=== PATIENT | female | born 1990 | race African-American/Black ===

== ENCOUNTER 2016-08-24 10:10 | Emergency (ER) | payer MEDICAID ==
[~2016-08-24] VITALS: Ht 160 cm; Wt 45.4 kg
[2016-08-24 10:40] VITALS: BP 156/107
[2016-08-24 14:46] LABS: Basophils # (auto) 0 uL; Basophils % (auto) 0.4 % (0.0-2.0); Eosinophils # (auto) 0 uL; Eosinophils % (auto) 0.1 % (0.0-7.0); Hematocrit 46.6 % (36.0-46.0); Hemoglobin 15.6 g/dL (12.2-16.2); Lymphocytes # (auto) 1.5 uL; Lymphocytes % (auto) 19.3 % (10.0-50.0); Mean Corpuscular Hemoglobin 30.4 pg (28.0-32.0); Mean Corpuscular Hgb Conc. 33.4 g/dL (32.0-36.0); Mean Corpuscular Volume 91.1 fL (80.0-100.0); Mean Platelet Volume 8.8 fL (7.4-10.4); Monocytes # (auto) 0.5 uL; Neutrophils # (auto) 5.6 uL; Neutrophils % (auto) 73.2 % (37.0-80.0); Platelet Count (auto) 340 10^3/uL (140-450); Red Cell Distribution Width 13.5 % (11.6-16.0); White Blood Cell 7.7 10^3/uL (4.4-10.8)
[2016-08-24 15:31] LABS: Albumin 4.2 g/dL (3.4-5.0); BUN/Creatinine Ratio 11.4; Calcium 9.7 mg/dL (8.5-10.1); Magnesium 2.3 mg/dL (1.6-2.6)
[2016-08-24 15:33] LABS: Bilirubin, Total 0.9 mg/dL (0.2-1.0); Total Protein 8.2 g/dL (6.4-8.2)
[2016-08-24 15:59] LABS: Potassium 2.7 mmol/L (3.5-5.1)
== END 2016-08-24 12:00 | disposition left against medical advice (07) ==
LOC: ER 10:10
DX: R10.84 Generalized abdominal pain (principal); R11.2 Nausea with vomiting, unspecified; M54.9 Dorsalgia, unspecified; Z53.21 Procedure and treatment not carried out due to patient leaving prior to being seen by health care provider
CPT/HCPCS: 36415; 80053; 83735; 84702; 85025; J7030

== ENCOUNTER 2016-10-02 05:27 | Inpatient (IN) | payer MEDICAID ==
[~2016-10-02] VITALS: Ht 162.6 cm; Wt 55.6 kg
[2016-10-02 06:14] LABS: Basophils # (auto) 0 uL; Basophils % (auto) 0.3 % (0.0-2.0); Eosinophils # (auto) 0 uL; Hematocrit 52.2 % (36.0-46.0); Hemoglobin 17.3 g/dL (12.2-16.2); Lymphocytes # (auto) 0.9 uL; Lymphocytes % (auto) 5.8 % (10.0-50.0); Mean Corpuscular Hgb Conc. 33.2 g/dL (32.0-36.0); Mean Corpuscular Volume 90.3 fL (80.0-100.0); Monocytes # (auto) 1.2 uL; Monocytes % (auto) 7.9 % (0.0-12.0); Neutrophils # (auto) 13.6 uL; Platelet Count (auto) 315 10^3/uL (140-450); Red Cell Distribution Width 13.3 % (11.6-16.0); White Blood Cell 15.8 10^3/uL (4.4-10.8)
[2016-10-02 06:22] LABS: INR 1.05 (0.9-1.15); Prothrombin Time 11.3 sec (9.37-12.3)
[2016-10-02 06:25] LABS: Albumin 5.2 g/dL (3.4-5.0); BUN/Creatinine Ratio 17.5; Calcium 10.6 mg/dL (8.5-10.1)
[2016-10-02 06:31] LABS: Bilirubin, Total 0.9 mg/dL (0.2-1.0); Potassium 2.6 mmol/L (3.5-5.1); Total Protein 9.8 g/dL (6.4-8.2)
[2016-10-02] MEDS ORDERED: SODIUM CHLORIDE 0.9% 1,000 ML IVB ONE (06:35)
[2016-10-02] MEDS ORDERED: PANTOPRAZOLE SODIUM 40 MG/10 ML VIAL IV STA (06:35)
[2016-10-02] MEDS ORDERED: HYDROmorphone HCL 2 MG/ML VL IV ONE (06:45)
[2016-10-02] MEDS ORDERED: PROCHLORPERAZINE EDISYLATE 5 MG/ML 2ML VIAL IV ONE (06:45)
[2016-10-02] MEDS ORDERED: POTASSIUM CHL 20MEQ/100ML 100 ML IV ONE (07:00)
[2016-10-02] MEDS ORDERED: MORPHINE SULF INJ 2 MG/ML SYRINGE 1ML IV PRN (08:30)
[2016-10-02] MEDS ORDERED: PANTOPRAZOLE SODIUM 40 MG/10 ML VIAL IV ONE (08:30)
[2016-10-02] MEDS ORDERED: LACTULOSE 20Gm/30ML SOLN PO PRN (08:30)
[2016-10-02] MEDS ORDERED: POTASSIUM CHL 20MEQ/100ML 100 ML IV SCH (08:30)
[2016-10-02] MEDS ORDERED: PROCHLORPERAZINE EDISYLATE 5 MG/ML 2ML VIAL IV PRN (08:30)
[2016-10-02] MEDS ORDERED: LORazepam 0.5 MG TAB PO PRN (08:30)
[2016-10-02] MEDS ORDERED: POTASSIUM CHL 20 Meq TABLET PO ONE (08:30)
[2016-10-02] MEDS ORDERED: cefTRIAXone 1GM/50ML D5W 50 ML IV ONE (08:30)
[2016-10-02] MEDS ORDERED: NITROGLYCERIN 0.4 MG SL TAB SL PRN (08:30)
[2016-10-02] MEDS ORDERED: ACETAMINOPHEN 500 MG TAB PO PRN (08:30)
[2016-10-02] MEDS ORDERED: TEMAZEPAM 15 MG CAP PO PRN (08:30)
[2016-10-02] MEDS: SOD CHL 0.9%/ KCL 40MEQ 1,000 ML IV SCH ×2 (09:58→18:11)
[2016-10-02] MEDS: MORPHINE SULF INJ 2 MG/ML SYRINGE 1ML IV PRN ×3 (09:58→20:13)
[2016-10-02] MEDS ORDERED: PANTOPRAZOLE SODIUM 40 MG/10 ML VIAL IV SCH (10:00)
[2016-10-02] MEDS: PANTOPRAZOLE SODIUM 40 MG/10 ML VIAL IV SCH ×2 (10:00→22:39)
[2016-10-02] MEDS: metroNIDAZOLE 500MG/100ML 100 ML IV SCH ×3 (10:34→22:39)
[2016-10-02 11:38] VITALS: BP 130/98
[2016-10-02] MEDS: POTASSIUM CHL 20MEQ/100ML 100 ML IV SCH ×5 (12:37→23:49)
[2016-10-02 12:53] LABS: Hematocrit 44.6 % (36.0-46.0); Hemoglobin 14.7 g/dL (12.2-16.2)
[2016-10-02 13:00] VITALS: BP 130/98
[2016-10-02 16:33] VITALS: BP 126/65
[2016-10-02] MEDS: HYDROcodone-ACET 5/325MG TAB PO PRN (18:25)
[2016-10-02 18:41] LABS: Hematocrit 44.2 % (36.0-46.0); Hemoglobin 14.5 g/dL (12.2-16.2)
[2016-10-02 21:37] VITALS: BP 126/70
[2016-10-03] MEDS ORDERED: HYDROmorphone HCL 2 MG/ML VL IV ONE (00:15)
[2016-10-03] MEDS: ONDANSETRON HCL 4 MG/2 ML VIAL IV PRN ×4 (00:29→21:36)
[2016-10-03] MEDS: SOD CHL 0.9%/ KCL 40MEQ 1,000 ML IV SCH ×3 (01:10→17:32)
[2016-10-03 01:31] LABS: Hematocrit 40.8 % (36.0-46.0); Hemoglobin 13.7 g/dL (12.2-16.2)
[2016-10-03] MEDS: metroNIDAZOLE 500MG/100ML 100 ML IV SCH ×4 (04:40→21:36)
[2016-10-03] MEDS: MORPHINE SULF INJ 2 MG/ML SYRINGE 1ML IV PRN ×2 (04:41→09:05)
[2016-10-03 04:44] VITALS: BP 134/80
[2016-10-03 06:36] LABS: Basophils # (auto) 0 uL; Basophils % (auto) 0.1 % (0.0-2.0); Eosinophils # (auto) 0 uL; Eosinophils % (auto) 0.2 % (0.0-7.0); Hemoglobin 13.3 g/dL (12.2-16.2); Lymphocytes # (auto) 0.9 uL; Lymphocytes % (auto) 8.3 % (10.0-50.0); Mean Corpuscular Hemoglobin 30.6 pg (28.0-32.0); Mean Corpuscular Hgb Conc. 33.3 g/dL (32.0-36.0); Mean Corpuscular Volume 92.1 fL (80.0-100.0); Mean Platelet Volume 9.4 fL (7.4-10.4); Monocytes # (auto) 1.3 uL; Monocytes % (auto) 11.4 % (0.0-12.0); Neutrophils # (auto) 8.8 uL; Platelet Count (auto) 263 10^3/uL (140-450); Red Cell Distribution Width 13.7 % (11.6-16.0)
[2016-10-03 07:17] LABS: Albumin 3.6 g/dL (3.4-5.0); Bilirubin, Total 0.8 mg/dL (0.2-1.0); Calcium 9.5 mg/dL (8.5-10.1); Potassium 3.9 mmol/L (3.5-5.1)
[2016-10-03] MEDS: HYDROcodone-ACET 5/325MG TAB PO PRN (07:53)
[2016-10-03 08:06] LABS: Thyroid Peroxidase (TPO) Ab 11 IU/mL (0-34)
[2016-10-03 08:20] LABS: Urine Bilirubin Negative (Negative); Urine Blood Negative /uL (Negative); Urine Color Yellow (Yellow); Urine Glucose Normal (Normal); Urine Ketone 2+ (Negative); Urine Nitrite Negative (Negative); Urine RBC 1 /hpf (0 - 4); Urine Squamous Epithelial Cell MOD /hpf (<5); Urine Urobilinogen Normal (Negative)
[2016-10-03 09:00] VITALS: BP 158/101
[2016-10-03] MEDS: PANTOPRAZOLE SODIUM 40 MG/10 ML VIAL IV SCH (09:04)
[2016-10-03] MEDS: cefTRIAXone 1GM/50ML D5W 50 ML IV SCH (09:05)
[2016-10-03 13:00] VITALS: BP 139/94
[2016-10-03] MEDS: MORPHINE SULFATE 4 MG/ML SYRG IV PRN ×3 (14:30→23:09)
[2016-10-03 16:11] LABS: Sjogren's Anti-SS-A Antibody <0.2 AI (0.0-0.9)
[2016-10-03 16:35] VITALS: BP 134/82
[2016-10-03] MEDS: HYDROcodone-ACET 10/325MG TAB PO PRN ×2 (17:33→21:36)
[2016-10-03 21:36] VITALS: BP 131/81
[2016-10-03] MEDS: FAMOTIDINE 20 MG TAB PO SCH (21:36)
[2016-10-04] MEDS: SOD CHL 0.9%/ KCL 40MEQ 1,000 ML IV SCH ×2 (02:32→10:40)
[2016-10-04] MEDS: ONDANSETRON HCL 4 MG/2 ML VIAL IV PRN ×3 (02:33→12:22)
[2016-10-04] MEDS: HYDROcodone-ACET 10/325MG TAB PO PRN ×2 (02:33→10:38)
[2016-10-04] MEDS: metroNIDAZOLE 500MG/100ML 100 ML IV SCH ×2 (04:31→10:40)
[2016-10-04] MEDS: MORPHINE SULFATE 4 MG/ML SYRG IV PRN ×3 (04:31→12:48)
[2016-10-04 05:04] VITALS: BP 138/94
[2016-10-04 05:45] LABS: BUN/Creatinine Ratio 13.4; Calcium 8.7 mg/dL (8.5-10.1); Potassium 3.3 mmol/L (3.5-5.1)
[2016-10-04 07:30] VITALS: BP 135/79
[2016-10-04] MEDS: cefTRIAXone 1GM/50ML D5W 50 ML IV SCH (08:00)
[2016-10-04] MEDS: FAMOTIDINE 20 MG TAB PO SCH (08:41)
[2016-10-04 09:00] VITALS: BP 135/79
[2016-10-04 13:00] VITALS: BP 130/88
[2016-10-05 12:07] LABS: Anti-sarcolemma Antibody Negative (Neg:<1:20)
[2016-10-05 13:10] LABS: Anti-intermyofibrillar Ab Negative (Neg:<1:20); Antiproteinase 3 (PR-3) Ab <3.5 U/mL (0.0-3.5)
== END 2016-10-04 15:00 | disposition home or self-care (01) | DRG 251 ==
LOC: ER 05:27 → TELE 05:28 → TELE-WESTW 11:03
PROVIDERS: ADMIT Internal Medicine; ATTEND Internal Medicine
DX: R10.31 Right lower quadrant pain (principal); N17.9 Acute kidney failure, unspecified; E87.8 Other disorders of electrolyte and fluid balance, not elsewhere classified; E87.1 Hypo-osmolality and hyponatremia; K92.2 Gastrointestinal hemorrhage, unspecified; E86.0 Dehydration; E87.6 Hypokalemia; F12.90 Cannabis use, unspecified, uncomplicated; G43.A1 Cyclical vomiting, in migraine, intractable; K59.00 Constipation, unspecified; G89.29 Other chronic pain; D72.829 Elevated white blood cell count, unspecified; B95.7 Other staphylococcus as the cause of diseases classified elsewhere
CPT/HCPCS: 36415; 74176; 76775; 80048; 80053; 80061; 80307; 81001; 81025; 82150; 83520; 83690; 84702; 85014; 85018; 85025; 85045; 85610; 85652; 85730; 86141; 86225; 86235; 86256; 86850; 86900; 86901; 87040; 87077; 87086; 87186; 94761; 96374; 96375; C9113; J0696; J2405; J3480; J3490

== ENCOUNTER 2016-11-02 04:31 | Emergency (ER) | payer MEDICAID ==
[~2016-11-02] VITALS: Ht 162.6 cm; Wt 54.4 kg
[2016-11-02 04:31] VITALS: BP 143/96
[2016-11-02] MEDS ORDERED: ceFAZolin 1GM/50ML D5W 50 ML IV ONE (07:36)
== END 2016-11-02 06:16 | disposition left against medical advice (07) ==
LOC: ER 04:31
DX: R10.30 Lower abdominal pain, unspecified (principal); R11.0 Nausea; Z53.21 Procedure and treatment not carried out due to patient leaving prior to being seen by health care provider
CPT/HCPCS: J0690

== ENCOUNTER 2016-11-03 02:58 | Emergency (ER) | payer MEDICAID ==
[~2016-11-03] VITALS: Ht 170.2 cm; Wt 52.2 kg
[2016-11-03 03:29] LABS: Basophils # (auto) 0 uL; Basophils % (auto) 0.4 % (0.0-2.0); Eosinophils # (auto) 0 uL; Hematocrit 46.5 % (36.0-46.0); Hemoglobin 15.6 g/dL (12.2-16.2); Lymphocytes # (auto) 1.6 uL; Lymphocytes % (auto) 18.4 % (10.0-50.0); Mean Corpuscular Hemoglobin 30.8 pg (28.0-32.0); Mean Corpuscular Hgb Conc. 33.6 g/dL (32.0-36.0); Mean Corpuscular Volume 91.7 fL (80.0-100.0); Mean Platelet Volume 9.1 fL (7.4-10.4); Monocytes # (auto) 0.9 uL; Monocytes % (auto) 9.8 % (0.0-12.0); Neutrophils # (auto) 6.4 uL; Neutrophils % (auto) 71.4 % (37.0-80.0); Platelet Count (auto) 327 10^3/uL (140-450); Red Cell Distribution Width 13.7 % (11.6-16.0); White Blood Cell 8.9 10^3/uL (4.4-10.8)
[2016-11-03 03:40] LABS: INR 1.05 (0.9-1.15); Partial Thromboplastin Time 25.1 sec (22.64-33.71); Prothrombin Time 11.5 sec (9.37-12.3)
[2016-11-03 03:52] LABS: Albumin 4.2 g/dL (3.4-5.0); Calcium 10.8 mg/dL (8.5-10.1)
[2016-11-03 03:54] LABS: BUN/Creatinine Ratio 6.7
[2016-11-03 03:56] LABS: Bilirubin, Total 0.8 mg/dL (0.2-1.0); Potassium 2.9 mmol/L (3.5-5.1); Total Protein 8.9 g/dL (6.4-8.2)
[2016-11-03] MEDS ORDERED: ONDANSETRON ODT 4 MG TAB PO ONE (04:15)
[2016-11-03] MEDS ORDERED: POTASSIUM CHL 20 Meq TABLET PO ONE (04:15)
[2016-11-03] MEDS ORDERED: SODIUM CHLORIDE 0.9% 1,000 ML IV ONE ×2 (07:14)
[2016-11-03] MEDS ORDERED: ONDANSETRON HCL 4 MG/2 ML VIAL IV ONE (07:15)
[2016-11-03] MEDS ORDERED: NALBUPHINE HCL 10 MG/1ml INJECTION IV ONE (07:15)
[2016-11-03 07:30] VITALS: BP 142/100
[2016-11-03] MEDS ORDERED: KETOROLAC TROMETH 30 MG/ML 1ML VIAL ONE (08:57)
[2016-11-03] MEDS ORDERED: KETOROLAC TROMETH 30 MG/ML 1ML VIAL IV ONE (09:15)
== END 2016-11-03 09:40 | disposition home or self-care (01) ==
LOC: ER 02:58 → EDBD 02:58 → ER 09:40
DX: K29.70 Gastritis, unspecified, without bleeding (principal)
CPT/HCPCS: 36415; 74176; 80053; 82150; 83690; 84702; 85025; 85610; 85730; 96361; 96374; 96375; 99285; J1885; J2300; J2405; J7030; Q0162

== ENCOUNTER 2017-01-05 11:15 | Emergency (ER) | payer MEDICAID ==
[~2017-01-05] VITALS: Ht 129.5 cm; Wt 29.5 kg
[2017-01-05 11:51] LABS: Urine Bilirubin Negative (Negative); Urine Color Yellow (Yellow); Urine Glucose Normal (Normal); Urine Mucus FEW (None Seen); Urine Nitrite Negative (Negative); Urine RBC 2 /hpf (0 - 4); Urine Squamous Epithelial Cell MOD /hpf (<5); Urine pH 6.5 (5.0-8.0)
[2017-01-05 11:52] LABS: Urine Blood 3+ /uL (Negative); Urine Ketone 2+ (Negative)
[2017-01-05 12:00] LABS: Basophils # (auto) 0 uL; Basophils % (auto) 0.4 % (0.0-2.0); CONDITION Y; Eosinophils # (auto) 0 uL; Eosinophils % (auto) 0.7 % (0.0-7.0); Hematocrit 41.1 % (36.0-46.0); Lymphocytes # (auto) 1.4 uL; Lymphocytes % (auto) 25.2 % (10.0-50.0); Mean Corpuscular Hemoglobin 31.4 pg (28.0-32.0); Mean Corpuscular Volume 92.1 fL (80.0-100.0); Mean Platelet Volume 8.7 fL (7.4-10.4); Monocytes # (auto) 0.5 uL; Monocytes % (auto) 8.5 % (0.0-12.0); Neutrophils # (auto) 3.7 uL; Neutrophils % (auto) 65.2 % (37.0-80.0); Platelet Count (auto) 342 10^3/uL (140-450); Red Cell Distribution Width 13.9 % (11.6-16.0); White Blood Cell 5.7 10^3/uL (4.4-10.8)
[2017-01-05] MEDS ORDERED: ONDANSETRON HCL 4 MG/2 ML VIAL IV ONE (12:15)
[2017-01-05] MEDS ORDERED: HYDROmorphone HCL 2 MG/ML VL IM ONE (12:15)
[2017-01-05] MEDS ORDERED: SODIUM CHLORIDE 0.9% 1,000 ML IV ONE ×2 (12:15→15:15)
[2017-01-05 12:19] LABS: Albumin 4.2 g/dL (3.4-5.0); BUN/Creatinine Ratio 8.8
[2017-01-05 12:22] LABS: Bilirubin, Total 0.6 mg/dL (0.2-1.0)
[2017-01-05 12:28] LABS: Potassium 2.9 mmol/L (3.5-5.1)
[2017-01-05] MEDS ORDERED: POTASSIUM CHL 10% (20 MEQ/15ML) ORAL SOLN PO ONE (12:30)
[2017-01-05] MEDS ORDERED: HYDROmorphone HCL 2 MG/ML VL IV ONE (12:45)
[2017-01-05 13:05] LABS: Amylase 75 U/L (25-115)
[2017-01-05] MEDS ORDERED: PROMETHAZINE HCL 25 MG/ML 1ML IV ONE (13:45)
[2017-01-05 15:30] VITALS: BP 142/86
== END 2017-01-05 15:47 | disposition home or self-care (01) ==
LOC: ER 11:15
DX: E86.0 Dehydration (principal); R11.2 Nausea with vomiting, unspecified; N39.0 Urinary tract infection, site not specified; E87.6 Hypokalemia; F12.10 Cannabis abuse, uncomplicated
CPT/HCPCS: 36415; 74176; 80053; 80307; 81001; 81025; 82150; 83690; 84702; 85025; 96361; 96374; 96375; 99285; J2405; J2550; J7030

== ENCOUNTER 2017-01-07 09:28 | Emergency (ER) | payer MEDICAID ==
[~2017-01-07] VITALS: Ht 167.6 cm; Wt 52.2 kg
[2017-01-07 10:15] LABS: Basophils # (auto) 0 uL; Basophils % (auto) 0.1 % (0.0-2.0); CONDITION Y; Eosinophils # (auto) 0 uL; Eosinophils % (auto) 0.1 % (0.0-7.0); Hematocrit 41.7 % (36.0-46.0); Hemoglobin 14.3 g/dL (12.2-16.2); Lymphocytes # (auto) 1.7 uL; Lymphocytes % (auto) 26.7 % (10.0-50.0); Mean Corpuscular Hemoglobin 31.5 pg (28.0-32.0); Mean Corpuscular Hgb Conc. 34.3 g/dL (32.0-36.0); Mean Corpuscular Volume 91.7 fL (80.0-100.0); Mean Platelet Volume 8.8 fL (7.4-10.4); Monocytes # (auto) 0.4 uL; Monocytes % (auto) 6.1 % (0.0-12.0); Neutrophils # (auto) 4.2 uL; Platelet Count (auto) 346 10^3/uL (140-450); Red Cell Distribution Width 13.6 % (11.6-16.0); White Blood Cell 6.3 10^3/uL (4.4-10.8)
[2017-01-07 10:24] LABS: Urine Bilirubin Negative (Negative); Urine Color Yellow (Yellow); Urine Glucose Normal (Normal); Urine Mucus FEW (None Seen); Urine Nitrite Negative (Negative); Urine RBC 1 /hpf (0 - 4); Urine Squamous Epithelial Cell FEW /hpf (<5)
[2017-01-07 10:26] LABS: Urine Blood 3+ /uL (Negative); Urine Ketone 3+ (Negative)
[2017-01-07 10:34] LABS: Amylase 74 U/L (25-115)
[2017-01-07 10:41] LABS: Albumin 4.5 g/dL (3.4-5.0); BUN/Creatinine Ratio 6.5; Bilirubin, Total 0.8 mg/dL (0.2-1.0); Calcium 10.9 mg/dL (8.5-10.1); Total Protein 8.6 g/dL (6.4-8.2)
[2017-01-07] MEDS ORDERED: SODIUM CHLORIDE 0.9% 1,000 ML IV ONE (11:00)
[2017-01-07] MEDS ORDERED: PROMETHAZINE HCL 25 MG/ML 1ML IV ONE (11:00)
[2017-01-07 11:05] LABS: Potassium 2.8 mmol/L (3.5-5.1)
[2017-01-07] MEDS ORDERED: POTASSIUM CHL 10% (20 MEQ/15ML) ORAL SOLN PO ONE (11:15)
[2017-01-07] MEDS ORDERED: POTASSIUM CHL 20MEQ/100ML 100 ML IV ONE (11:15)
[2017-01-07] MEDS ORDERED: HYDROmorphone HCL 2 MG/ML VL IV ONE (12:15)
[2017-01-07 13:27] VITALS: BP 158/95
== END 2017-01-07 13:43 | disposition home or self-care (01) ==
LOC: ER 09:28
DX: N39.0 Urinary tract infection, site not specified (principal); F12.10 Cannabis abuse, uncomplicated
CPT/HCPCS: 36415; 80053; 80307; 81001; 81025; 82150; 83690; 85025; 96361; 96374; 96375; 99285; J1170; J2550; J3480; J7030

== ENCOUNTER 2017-10-22 15:56 | Inpatient (IN) | payer MEDICAID ==
[~2017-10-22] VITALS: Ht 160 cm; Wt 55.7 kg
[2017-10-22 17:16] LABS: Basophils # (auto) 0 uL; Basophils % (auto) 0.2 % (0.0-2.0); Eosinophils # (auto) 0 uL; Hematocrit 50.9 % (36.0-46.0); Hemoglobin 17.4 g/dL (12.2-16.2); Lymphocytes # (auto) 0.7 uL; Lymphocytes % (auto) 4.6 % (10.0-50.0); Mean Corpuscular Hemoglobin 31.2 pg (28.0-32.0); Mean Corpuscular Hgb Conc. 34.2 g/dL (32.0-36.0); Mean Corpuscular Volume 91.3 fL (80.0-100.0); Monocytes # (auto) 1.7 uL; Monocytes % (auto) 10.6 % (0.0-12.0); Neutrophils # (auto) 13.2 uL; Neutrophils % (auto) 84.6 % (37.0-80.0); Nucleated Red Blood Cells % 0.1 %; Platelet Count (auto) 390 10^3/uL (140-450); Red Blood Cells 5.58 10^6/uL (4.0-5.20); Red Cell Distribution Width 13.7 % (11.8-14.3); White Blood Cell 15.6 10^3/uL (4.4-10.8)
[2017-10-22] MEDS ORDERED: SODIUM CHLORIDE 0.9% 1,000 ML IVB ONE (17:25)
[2017-10-22] MEDS ORDERED: ONDANSETRON HCL 4 MG/2 ML VIAL IV ONE (17:30)
[2017-10-22 17:38] LABS: Albumin 5.1 g/dL (3.4-5.0); BUN/Creatinine Ratio 13.4; Calcium 11.2 mg/dL (8.5-10.1)
[2017-10-22 17:41] LABS: Bilirubin, Total 0.8 mg/dL (0.2-1.0); Total Protein 10.6 g/dL (6.4-8.2)
[2017-10-22] MEDS ORDERED: KETOROLAC TROMETH 30 MG/ML 1ML VIAL IV ONE (19:30)
[2017-10-22] MEDS ORDERED: PANTOPRAZOLE 40 MG/10 ML VIAL IV ONE ×2 (20:29→21:30)
[2017-10-22] MEDS ORDERED: MORPHINE SULFATE 4 MG/ML SYR/VIAL ONE (21:18)
[2017-10-22 21:29] LABS: Urine Bacteria FEW /hpf (None Seen); Urine Blood 1+ /uL (Negative); Urine Hyaline Cast MOD /lpf (0 - 2); Urine Mucus FEW (None Seen); Urine Specific Gravity 1.025 (1.001-1.035); Urine WBC 40 /hpf (0 - 5)
[2017-10-22] MEDS ORDERED: cefTRIAXone 1GM/10ml IVPUSH 10 ML IV ONE (21:30)
[2017-10-22] MEDS ORDERED: MORPHINE SULFATE 4 MG/ML SYR/VIAL IV ONE (21:30)
[2017-10-22] MEDS ORDERED: MORPHINE SULFATE 4 MG/ML SYR/VIAL IV PRN (22:15)
[2017-10-22] MEDS ORDERED: ACETAMINOPHEN 500 MG TAB PO PRN (22:15)
[2017-10-22 23:34] LABS: Basophils # (auto) 0 uL; Basophils % (auto) 0.1 % (0.0-2.0); Eosinophils # (auto) 0 uL; Hematocrit 44.3 % (36.0-46.0); Hemoglobin 14.8 g/dL (12.2-16.2); Lymphocytes # (auto) 1.1 uL; Lymphocytes % (auto) 8.1 % (10.0-50.0); Mean Corpuscular Hemoglobin 30.5 pg (28.0-32.0); Mean Corpuscular Hgb Conc. 33.3 g/dL (32.0-36.0); Mean Corpuscular Volume 91.5 fL (80.0-100.0); Monocytes # (auto) 1.9 uL; Monocytes % (auto) 14.3 % (0.0-12.0); Neutrophils # (auto) 10.1 uL; Neutrophils % (auto) 77.5 % (37.0-80.0); Platelet Count (auto) 309 10^3/uL (140-450); Red Blood Cells 4.84 10^6/uL (4.0-5.20); Red Cell Distribution Width 13.4 % (11.8-14.3); White Blood Cell 13.1 10^3/uL (4.4-10.8)
[2017-10-22 23:45] VITALS: BP 124/86
[2017-10-22 23:52] LABS: BUN/Creatinine Ratio 18.7; Calcium 9.1 mg/dL (8.5-10.1); Potassium 3.3 mmol/L (3.5-5.1)
[2017-10-23 00:10] VITALS: BP 124/86
[2017-10-23] MEDS: POTASSIUM CHL 20MEQ/100ML 100 ML IV SCH ×4 (00:10→18:53)
[2017-10-23] MEDS: ONDANSETRON HCL 4 MG/2 ML VIAL IV PRN ×4 (00:11→13:45)
[2017-10-23 05:48] VITALS: BP 126/90
[2017-10-23] MEDS: MORPHINE SULFATE 4 MG/ML SYR/VIAL IV PRN ×5 (06:22→23:09)
[2017-10-23 08:00] VITALS: BP 116/91
[2017-10-23] MEDS: SODIUM CHLORIDE 0.9% 1,000 ML IV SCH ×4 (08:18→22:44)
[2017-10-23] MEDS: cefTRIAXone 1GM/10ml IVPUSH 10 ML IV SCH (09:21)
[2017-10-23 12:50] VITALS: BP 140/95
[2017-10-23 14:09] LABS: Urine Bacteria NONE SEEN /hpf (None Seen); Urine Blood 2+ /uL (Negative); Urine Specific Gravity 1.024 (1.001-1.035); Urine WBC 7 /hpf (0 - 5)
[2017-10-23 14:26] LABS: Protein, Urine 33.4 mg/dL (0.0-11.9)
[2017-10-23 15:01] LABS: Alcohol, Urine < 3.0 mg/dL (0-5); Amphetamine Screen, Urine NEGATIVE (NEGATIVE); Barbiturate Scree,Urine NEGATIVE (NEGATIVE); Benzodiazephine Screen, Urine NEGATIVE (NEGATIVE); Cannabinoid Screen, Urine POSITIVE (NEGATIVE); Cocaine Screen, Urine POSITIVE (NEGATIVE); Opiate Scree,Urine POSITIVE (NEGATIVE); Phencyclidine Screen, Urine NEGATIVE (NEGATIVE)
[2017-10-23 17:00] VITALS: BP 142/81
[2017-10-23] MEDS: PROMETHAZINE HCL 25 MG/ML 1ML IV PRN ×2 (19:07→23:09)
[2017-10-23 22:00] VITALS: BP 143/98
[2017-10-24] MEDS: PROMETHAZINE HCL 25 MG/ML 1ML IV PRN ×5 (03:24→22:30)
[2017-10-24] MEDS: MORPHINE SULFATE 4 MG/ML SYR/VIAL IV PRN ×5 (03:25→22:30)
[2017-10-24 05:00] VITALS: BP 155/108
[2017-10-24 07:14] LABS: Basophils # (auto) 0 uL; Basophils % (auto) 0.2 % (0.0-2.0); Eosinophils # (auto) 0 uL; Hemoglobin 13.8 g/dL (12.2-16.2); Lymphocytes # (auto) 0.5 uL; Lymphocytes % (auto) 5.7 % (10.0-50.0); Mean Corpuscular Hemoglobin 31.2 pg (28.0-32.0); Mean Corpuscular Hgb Conc. 33.7 g/dL (32.0-36.0); Mean Corpuscular Volume 92.4 fL (80.0-100.0); Monocytes % (auto) 12.2 % (0.0-12.0); Neutrophils # (auto) 6.6 uL; Neutrophils % (auto) 81.9 % (37.0-80.0); Nucleated Red Blood Cells % 0.1 %; Platelet Count (auto) 266 10^3/uL (140-450); Red Blood Cells 4.43 10^6/uL (4.0-5.20); Red Cell Distribution Width 13.5 % (11.8-14.3); White Blood Cell 8.1 10^3/uL (4.4-10.8)
[2017-10-24] MEDS: SODIUM CHLORIDE 0.9% 1,000 ML IV SCH ×3 (07:18→22:29)
[2017-10-24 07:22] LABS: BUN/Creatinine Ratio 11.1; Calcium 9.3 mg/dL (8.5-10.1); Potassium 3.4 mmol/L (3.5-5.1)
[2017-10-24 07:34] LABS: Albumin 3.5 g/dL (3.4-5.0); Bilirubin, Direct 0.2 mg/dL (0-0.2); Bilirubin, Total 0.6 mg/dL (0.2-1.0); Phosphorus 2.1 mg/dL (2.5-4.90); Total Protein 7.3 g/dL (6.4-8.2); Uric Acid 3.3 mg/dL (2.6-6.0)
[2017-10-24 09:00] VITALS: BP 144/91
[2017-10-24] MEDS: cefTRIAXone 1GM/10ml IVPUSH 10 ML IV SCH (09:30)
[2017-10-24] MEDS: LABETALOL HCL 200 MG TAB PO SCH ×3 (11:43→22:28)
[2017-10-24] MEDS: PHENAZOPYRIDINE HCL 100 MG TAB PO SCH ×3 (11:59→18:15)
[2017-10-24] MEDS: PANTOPRAZOLE 40 MG TAB PO ONE ×2 (11:59→13:40)
[2017-10-24] MEDS: LACTULOSE 20Gm/30ML SOLN PO ONE ×2 (12:00→13:40)
[2017-10-24 12:37] VITALS: BP 135/85
[2017-10-24 16:37] VITALS: BP 152/102
[2017-10-24 22:00] VITALS: BP 144/83
[2017-10-24] MEDS: LACTULOSE 20Gm/30ML SOLN PO SCH (22:00)
[2017-10-24] MEDS: PANTOPRAZOLE 40 MG TAB PO SCH (22:29)
[2017-10-25] MEDS: MORPHINE SULFATE 4 MG/ML SYR/VIAL IV PRN ×5 (03:22→19:59)
[2017-10-25] MEDS: PROMETHAZINE HCL 25 MG/ML 1ML IV PRN ×5 (03:22→19:52)
[2017-10-25 04:39] VITALS: BP 135/72
[2017-10-25 07:49] LABS: BUN/Creatinine Ratio 9.3; Calcium 9.2 mg/dL (8.5-10.1); Potassium 3.3 mmol/L (3.5-5.1)
[2017-10-25] MEDS: HYDROcodone-ACET 5/325MG TAB PO PRN ×4 (08:08→21:58)
[2017-10-25 09:00] VITALS: BP 139/85
[2017-10-25] MEDS: cefTRIAXone 1GM/10ml IVPUSH 10 ML IV SCH (10:19)
[2017-10-25] MEDS: LACTULOSE 20Gm/30ML SOLN PO SCH ×2 (10:19→21:57)
[2017-10-25] MEDS: PHENAZOPYRIDINE HCL 100 MG TAB PO SCH ×3 (10:19→18:45)
[2017-10-25] MEDS: LABETALOL HCL 200 MG TAB PO SCH ×2 (10:20→21:59)
[2017-10-25] MEDS: PANTOPRAZOLE 40 MG TAB PO SCH ×2 (10:20→21:59)
[2017-10-25 13:00] VITALS: BP 142/91
[2017-10-25 17:00] VITALS: BP 128/82
[2017-10-25 21:50] VITALS: BP 164/95
[2017-10-26] MEDS: PROMETHAZINE HCL 25 MG/ML 1ML IV PRN (02:17)
[2017-10-26] MEDS: MORPHINE SULFATE 4 MG/ML SYR/VIAL IV PRN (02:17)
[2017-10-26 05:30] VITALS: BP 151/96
[2017-10-26] MEDS: PHENAZOPYRIDINE HCL 100 MG TAB PO SCH (07:49)
[2017-10-26] MEDS: HYDROcodone-ACET 5/325MG TAB PO PRN (07:50)
[2017-10-26 08:53] VITALS: BP_SYST 142; BP_SYST 144; BP_DIAS 103; BP_DIAS 82
[2017-10-26] MEDS: cefTRIAXone 1GM/10ml IVPUSH 10 ML IV SCH (09:29)
[2017-10-26] MEDS: PANTOPRAZOLE 40 MG TAB PO SCH (09:37)
[2017-10-26] MEDS: LACTULOSE 20Gm/30ML SOLN PO SCH (09:37)
[2017-10-26] MEDS: LABETALOL HCL 200 MG TAB PO SCH (09:38)
[2017-10-26] MEDS ORDERED: PANT40TA2 PO (09:53)
[2017-10-26] MEDS ORDERED: LAB200T PO (09:53)
[2017-10-26] MEDS ORDERED: PROM25TA5 PO (09:53)
[2017-10-26] MEDS ORDERED: CEPH-37 PO (09:53)
[2017-10-26 10:22] VITALS: BP 144/103
== END 2017-10-26 12:30 | disposition home or self-care (01) | DRG 469 ==
LOC: ER 15:56 → EDBD 15:56 → TELE 15:57 → TELE-WESTW 23:35 → WEST WING 10-23 16:24
PROVIDERS: ADMIT Nurse Practitioner Family; ATTEND Internal Medicine
DX: N17.0 Acute kidney failure with tubular necrosis (principal); E11.649 Type 2 diabetes mellitus with hypoglycemia without coma; N30.00 Acute cystitis without hematuria; D75.1 Secondary polycythemia; E87.1 Hypo-osmolality and hyponatremia; E86.0 Dehydration; I10 Essential (primary) hypertension; E87.6 Hypokalemia; F12.90 Cannabis use, unspecified, uncomplicated; F17.210 Nicotine dependence, cigarettes, uncomplicated; K59.00 Constipation, unspecified
CPT/HCPCS: 36415; 71045; 74176; 76775; 80048; 80053; 80076; 80307; 81001; 82150; 82570; 83605; 83690; 83735; 84100; 84156; 84300; 84550; 84702; 85025; 87040; 94761; 96361; 96374; 96375; C9113; J1885; J2405; J3480

== ENCOUNTER 2017-10-30 05:39 | Inpatient (IN) | payer MEDICAID ==
[~2017-10-30] VITALS: Ht 160 cm; Wt 60.6 kg
[~2017-10-30 05:39] MED LIST: CEPH-37 PO; LAB200T PO; PANT40TA2 PO; PROM25TA5 PO
[2017-10-30 07:07] LABS: Hematocrit 48.6 % (36.0-46.0); Mean Corpuscular Hgb Conc. 34.9 g/dL (32.0-36.0); Mean Corpuscular Volume 88.9 fL (80.0-100.0); Platelet Count (auto) 307 10^3/uL (140-450); Red Blood Cells 5.47 10^6/uL (4.0-5.20); White Blood Cell 6.3 10^3/uL (4.4-10.8)
[2017-10-30 07:12] LABS: Band Neutrophils % (manual) 0; Basophils % (manual) 0 (0.0-2.0); Blast Cells 0; Eosinophils % (manual) 0 (0-7); Metamyelocytes % 0; Myelocytes % 0; Promyelocytes % 0; Reactive Lymphocytes 0
[2017-10-30] MEDS ORDERED: SODIUM CHLORIDE 0.9% 1,000 ML IVB ONE (07:21)
[2017-10-30] MEDS ORDERED: KETOROLAC TROMETH 30 MG/ML 1ML VIAL IV ONE (07:30)
[2017-10-30] MEDS ORDERED: PROMETHAZINE HCL 25 MG/ML 1ML IV PRN (07:30)
[2017-10-30 07:32] LABS: Alanine Aminotransferase 19 U/L (13-56); Albumin 3.6 g/dL (3.4-5.0); Alkaline Phosphatase 80 U/L (45-117); Amylase 87 U/L (25-115); Anion Gap 16 (5-15); Aspartate Aminotransferase 17 U/L (15-37); BUN/Creatinine Ratio 16.4; Bilirubin, Total 0.4 mg/dL (0.2-1.0); Blood Urea Nitrogen 9 mg/dL (7-18); Calcium 10.4 mg/dL (8.5-10.1); Carbon Dioxide 20 mmol/L (21-32); Chloride 92 mmol/L (98-107); GFR African American 169 mL/min; GFR Non-African American 140 mL/min; Glucose 101 mg/dL (74-106); Lipase 405 U/L (73-393); Sodium 128 mmol/L (136-145)
[2017-10-30 07:59] LABS: Potassium 2.6 mmol/L (3.5-5.1)
[2017-10-30 08:29] LABS: Alcohol, Urine < 3.0 mg/dL (0-5); Amphetamine Screen, Urine NEGATIVE (NEGATIVE); Barbiturate Scree,Urine NEGATIVE (NEGATIVE); Benzodiazephine Screen, Urine NEGATIVE (NEGATIVE); Cannabinoid Screen, Urine POSITIVE (NEGATIVE); Cocaine Screen, Urine NEGATIVE (NEGATIVE); Opiate Scree,Urine POSITIVE (NEGATIVE); Phencyclidine Screen, Urine NEGATIVE (NEGATIVE)
[2017-10-30 08:33] LABS: Urine Bacteria NONE SEEN /hpf (None Seen); Urine Blood 3+ /uL (Negative); Urine Mucus FEW (None Seen); Urine Specific Gravity 1.026 (1.001-1.035); Urine WBC 17 /hpf (0 - 5)
[2017-10-30] MEDS ORDERED: POTASSIUM CHL 10% (20 MEQ/15ML) 15ml ORAL SOLN PO ONE (09:30)
[2017-10-30] MEDS ORDERED: cefTRIAXone 1GM/10ml IVPUSH 10 ML IV ONE ×2 (09:30→11:00)
[2017-10-30] MEDS ORDERED: MORPHINE SULFATE 8mg/ml INJ SDV IV PRN ×2 (11:00→11:15)
[2017-10-30] MEDS ORDERED: ACETAMINOPHEN 500 MG TAB PO PRN (11:00)
[2017-10-30] MEDS ORDERED: NITROGLYCERIN 0.4 MG SL TAB SL PRN (11:00)
[2017-10-30] MEDS ORDERED: MORPHINE SULFATE 4 MG/ML SYR/VIAL IV PRN (11:00)
[2017-10-30] MEDS ORDERED: LORazepam 0.5 MG TAB PO PRN (11:00)
[2017-10-30 11:24] LABS: Lymphocytes % (manual) 24 (10.0-50.0); Monocytes % (manual) 10 (0-12)
[2017-10-30] MEDS ORDERED: metroNIDAZOLE 500MG/100ML 100 ML IV SCH (12:00)
[2017-10-30] MEDS ORDERED: LACTULOSE 20Gm/30ML SOLN PO PRN (12:15)
[2017-10-30] MEDS: MORPHINE SULFATE 8mg/ml INJ SDV IV PRN ×3 (12:25→23:25)
[2017-10-30 13:11] VITALS: BP 138/101
[2017-10-30] MEDS: metroNIDAZOLE 500MG/100ML 100 ML IV SCH ×2 (14:00→21:20)
[2017-10-30] MEDS: POTASSIUM CHL 20MEQ/100ML 100 ML IV SCH ×3 (14:29→17:28)
[2017-10-30] MEDS: SOD CHL 0.9%/ KCL 40MEQ 1,000 ML IV SCH ×2 (14:30→21:20)
[2017-10-30] MEDS: HYDROcodone-ACET 5/325MG TAB PO PRN ×2 (14:34→20:40)
[2017-10-30] MEDS: PROMETHAZINE HCL 25 MG/ML 1ML IV PRN ×2 (18:50→23:24)
[2017-10-30] MEDS: PANTOPRAZOLE 40 MG TAB PO SCH (21:20)
[2017-10-30] MEDS: TEMAZEPAM 15 MG CAP PO PRN (21:21)
[2017-10-30] MEDS: LABETALOL HCL 200 MG TAB PO SCH (21:47)
[2017-10-30 22:00] VITALS: BP 136/94
[2017-10-31] MEDS: MORPHINE SULFATE 8mg/ml INJ SDV IV PRN ×4 (04:37→16:26)
[2017-10-31] MEDS: PROMETHAZINE HCL 25 MG/ML 1ML IV PRN ×2 (04:38→09:15)
[2017-10-31 05:00] VITALS: BP 162/115
[2017-10-31] MEDS: SOD CHL 0.9%/ KCL 40MEQ 1,000 ML IV SCH (05:24)
[2017-10-31] MEDS: HYDROcodone-ACET 5/325MG TAB PO PRN ×2 (05:42→22:03)
[2017-10-31] MEDS: metroNIDAZOLE 500MG/100ML 100 ML IV SCH ×3 (05:42→22:00)
[2017-10-31 06:28] LABS: Amylase 66 U/L (25-115); Cholesterol 92 mg/dL (< 200); HDL Cholesterol 32 mg/dL (40-59); LDL Cholesterol 56 mg/dL (< 100); Lipase 468 U/L (73-393); Triglycerides 67 mg/dL (< 150)
[2017-10-31 06:52] LABS: Albumin 2.9 g/dL (3.4-5.0); BUN/Creatinine Ratio 7.5; Bilirubin, Total 0.2 mg/dL (0.2-1.0); Calcium 9.1 mg/dL (8.5-10.1); Potassium 3.6 mmol/L (3.5-5.1); Total Protein 7.4 g/dL (6.4-8.2)
[2017-10-31] MEDS: cefTRIAXone 1GM/10ml IVPUSH 10 ML IV SCH (09:15)
[2017-10-31 09:17] LABS: Basophils # (auto) 0 uL; Basophils % (auto) 0.5 % (0.0-2.0); Eosinophils # (auto) 0 uL; Eosinophils % (auto) 0.2 % (0.0-7.0); Hematocrit 41.7 % (36.0-46.0); Hemoglobin 14.2 g/dL (12.2-16.2); Lymphocytes # (auto) 1.4 uL; Mean Corpuscular Hemoglobin 30.4 pg (28.0-32.0); Mean Corpuscular Volume 89.6 fL (80.0-100.0); Monocytes % (auto) 13.8 % (0.0-12.0); Neutrophils # (auto) 4.6 uL; Neutrophils % (auto) 65.5 % (37.0-80.0); Nucleated Red Blood Cells % 0.1 %; Platelet Count (auto) 267 10^3/uL (140-450); Red Blood Cells 4.66 10^6/uL (4.0-5.20); Red Cell Distribution Width 13.1 % (11.8-14.3)
[2017-10-31] MEDS: LABETALOL HCL 200 MG TAB PO SCH ×2 (09:21→22:02)
[2017-10-31] MEDS: PANTOPRAZOLE 40 MG TAB PO SCH ×2 (09:21→22:02)
[2017-10-31 09:24] VITALS: BP 136/85
[2017-10-31] MEDS ORDERED: PANTOPRAZOLE 40 MG TAB PO SCH (10:00)
[2017-10-31] MEDS ORDERED: GOLYTELY 4L KIT PO ONE (12:00)
[2017-10-31] MEDS: ONDANSETRON HCL 4 MG/2 ML VIAL IV PRN ×2 (12:21→16:27)
[2017-10-31 12:35] VITALS: BP 141/98
[2017-10-31 17:39] VITALS: BP 143/95
[2017-10-31 22:00] VITALS: BP 148/99
[2017-10-31] MEDS: TEMAZEPAM 15 MG CAP PO PRN (23:22)
[2017-11-01 05:00] VITALS: BP 142/89
[2017-11-01] MEDS ORDERED: GOLYTELY 4L KIT PO ONE (05:00)
[2017-11-01] MEDS: metroNIDAZOLE 500MG/100ML 100 ML IV SCH (06:00)
[2017-11-01 06:33] LABS: Basophils # (auto) 0 uL; Basophils % (auto) 0.5 % (0.0-2.0); Eosinophils # (auto) 0 uL; Eosinophils % (auto) 0.5 % (0.0-7.0); Hematocrit 41.5 % (36.0-46.0); Hemoglobin 14.2 g/dL (12.2-16.2); Lymphocytes # (auto) 1.9 uL; Lymphocytes % (auto) 25.1 % (10.0-50.0); Mean Corpuscular Hemoglobin 30.8 pg (28.0-32.0); Mean Corpuscular Hgb Conc. 34.4 g/dL (32.0-36.0); Mean Corpuscular Volume 89.7 fL (80.0-100.0); Monocytes # (auto) 0.9 uL; Monocytes % (auto) 12.3 % (0.0-12.0); Neutrophils # (auto) 4.6 uL; Neutrophils % (auto) 61.6 % (37.0-80.0); Nucleated Red Blood Cells % 0.1 %; Platelet Count (auto) 301 10^3/uL (140-450); Red Blood Cells 4.62 10^6/uL (4.0-5.20); Red Cell Distribution Width 13.3 % (11.8-14.3); White Blood Cell 7.4 10^3/uL (4.4-10.8)
[2017-11-01 06:42] LABS: INR 0.98 (0.9-1.15); Partial Thromboplastin Time 29.2 sec (23.78-33.04); Prothrombin Time 10.5 sec (9.27-12.13)
[2017-11-01 06:51] LABS: Albumin 3.2 g/dL (3.4-5.0); BUN/Creatinine Ratio 9.3; Bilirubin, Direct 0.1 mg/dL (0-0.2); Bilirubin, Total 0.3 mg/dL (0.2-1.0); Calcium 9.6 mg/dL (8.5-10.1); Magnesium 2.1 mg/dL (1.6-2.6); Potassium 3.2 mmol/L (3.5-5.1); Total Protein 7.4 g/dL (6.4-8.2)
[2017-11-01 09:00] VITALS: BP 136/98
[2017-11-01] MEDS: cefTRIAXone 1GM/10ml IVPUSH 10 ML IV SCH (09:00)
[2017-11-01] MEDS: PANTOPRAZOLE 40 MG TAB PO SCH (11:00)
[2017-11-01] MEDS: LABETALOL HCL 200 MG TAB PO SCH (11:00)
== END 2017-11-01 13:00 | disposition home or self-care (01) | DRG 282 ==
LOC: ER 05:39 → EDBD 05:39 → TELE 05:40 → TELE-CENTR 13:11
PROVIDERS: ADMIT Internal Medicine; ATTEND Internal Medicine
DX: K85.90 Acute pancreatitis without necrosis or infection, unspecified (principal); E87.8 Other disorders of electrolyte and fluid balance, not elsewhere classified; I10 Essential (primary) hypertension; E87.1 Hypo-osmolality and hyponatremia; E87.6 Hypokalemia; K21.9 Gastro-esophageal reflux disease without esophagitis; E86.0 Dehydration; F12.10 Cannabis abuse, uncomplicated; N39.0 Urinary tract infection, site not specified; Z87.891 Personal history of nicotine dependence
CPT/HCPCS: 36415; 76700; 80048; 80053; 80061; 80076; 80307; 81001; 81025; 82150; 83690; 83735; 84484; 84702; 85007; 85025; 85027; 85610; 85652; 85730; 86141; 87086; 93005; 96361; 96374; 96375; J1885; J2270; J2405; J3480; J3490

== ENCOUNTER → 2019-09-17 | Emergency (ER) | payer MEDICAID ==
[~2019-09-17] VITALS: Ht 160 cm; Wt 59.0 kg
[~2019-09-17] MED LIST changes: -CEPH-37 PO; -LAB200T PO; +LABE200T6 PO; +MORPHINE SULF INJ 2 MG/ML SYRINGE 1ML IV ONE; +ONDANSETRON HCL 4 MG/2 ML VIAL IV ONE; +POTASSIUM CHL 20 Meq TABLET PO ONE; +PROMETHAZINE HCL 25 MG/ML 1ML IV PRN; +SODIUM CHLORIDE 0.9% 1,000 ML IVB ONE; +cefTRIAXone 1GM/50ML D5W 50 ML IV ONE
[2019-09-17 18:38] VITALS: BP 140/100
[2019-09-17 18:47] LABS: Basophils # (auto) 0 10 ^3/uL (0-0.2); Basophils % (auto) 0.3 % (0.0-2.0); Eosinophils # (auto) 0 10 ^3/uL (0-0.8); Eosinophils % (auto) 0.1 % (0.0-7.0); Hematocrit 45.5 % (36.0-46.0); Hemoglobin 15.5 g/dL (12.2-16.2); Lymphocytes # (auto) 0.9 10 ^3/uL (0.4-5.4); Lymphocytes % (auto) 9.4 % (10.0-50.0); Mean Corpuscular Hemoglobin 32.2 pg (28.0-32.0); Mean Corpuscular Hgb Conc. 34.1 g/dL (32.0-36.0); Mean Corpuscular Volume 94.6 fL (80.0-100.0); Monocytes # (auto) 1.3 10 ^3/uL (0-1.3); Monocytes % (auto) 13.5 % (0.0-12.0); Neutrophils # (auto) 7.3 10 ^3/uL (1.6-8.6); Neutrophils % (auto) 76.7 % (37.0-80.0); Nucleated Red Blood Cells % 0.1 %; Platelet Count (auto) 346 10^3/uL (140-450); Red Blood Cells 4.81 10^6/uL (4.0-5.20); Red Cell Distribution Width 13.1 % (11.8-14.3); White Blood Cell 9.5 10^3/uL (4.4-10.8)
[2019-09-17 19:02] LABS: Urine Bacteria FEW /hpf (None Seen); Urine Blood 3+ /uL (Negative); Urine Mucus MODERATE (None Seen); Urine Specific Gravity 1.046 (1.001-1.035); Urine WBC 14 /hpf (0 - 5)
[2019-09-17 19:05] LABS: Albumin 4.8 g/dL (3.4-5.0); Calcium 11.2 mg/dL (8.5-10.1); Potassium 3.3 mmol/L (3.5-5.1)
[2019-09-17 19:09] LABS: BUN/Creatinine Ratio 15.1; Bilirubin, Total 1.2 mg/dL (0.2-1.0); Total Protein 9.6 g/dL (6.4-8.2)
[2019-09-17 20:20] LABS: Magnesium 2.6 mg/dL (1.6-2.6)
== END | disposition home or self-care (01) ==
LOC: ER 18:18
DX: N39.0 Urinary tract infection, site not specified (principal); R11.2 Nausea with vomiting, unspecified; E87.6 Hypokalemia; F17.210 Nicotine dependence, cigarettes, uncomplicated; I10 Essential (primary) hypertension; K21.9 Gastro-esophageal reflux disease without esophagitis; Z32.02 Encounter for pregnancy test, result negative
CPT/HCPCS: 36415; 74176; 80053; 81001; 81025; 82150; 83690; 83735; 85025; 96365; 96375; 99284; J0696; J2270; J2405; J2550; J7030

== ENCOUNTER 2020-06-17 14:44 | Emergency (ER) | payer MEDICAID ==
[~2020-06-17] VITALS: Ht 160 cm; Wt 63.5 kg
[~2020-06-17 14:44] MED LIST changes: -MORPHINE SULF INJ 2 MG/ML SYRINGE 1ML IV ONE; -ONDANSETRON HCL 4 MG/2 ML VIAL IV ONE; -POTASSIUM CHL 20 Meq TABLET PO ONE; -PROMETHAZINE HCL 25 MG/ML 1ML IV PRN; -SODIUM CHLORIDE 0.9% 1,000 ML IVB ONE; -cefTRIAXone 1GM/50ML D5W 50 ML IV ONE
[2020-06-17] MEDS ORDERED: HYDROcodone-ACET 10/325MG TAB PO ONE (15:15)
[2020-06-17 16:19] LABS: Basophils # (auto) 0.1 10 ^3/uL (0-0.2); Basophils % (auto) 0.9 % (0.0-2.0); Eosinophils # (auto) 0 10 ^3/uL (0-0.8); Eosinophils % (auto) 0.1 % (0.0-7.0); Hematocrit 41.3 % (36.0-46.0); Hemoglobin 13.9 g/dL (12.2-16.2); Lymphocytes # (auto) 0.8 10 ^3/uL (0.4-5.4); Lymphocytes % (auto) 9.5 % (10.0-50.0); Mean Corpuscular Hemoglobin 32.6 pg (28.0-32.0); Mean Corpuscular Hgb Conc. 33.7 g/dL (32.0-36.0); Mean Corpuscular Volume 96.8 fL (80.0-100.0); Monocytes # (auto) 0.6 10 ^3/uL (0-1.3); Monocytes % (auto) 6.6 % (0.0-12.0); Neutrophils # (auto) 7.1 10 ^3/uL (1.6-8.6); Neutrophils % (auto) 82.9 % (37.0-80.0); Platelet Count (auto) 361 10^3/uL (140-450); Red Blood Cells 4.26 10^6/uL (4.0-5.20); Red Cell Distribution Width 13.5 % (11.8-14.3); White Blood Cell 8.5 10^3/uL (4.4-10.8)
[2020-06-17 16:39] LABS: Albumin 4.3 g/dL (3.4-5.0); Calcium 10.3 mg/dL (8.5-10.1); Potassium 3.2 mmol/L (3.5-5.1)
[2020-06-17 16:42] LABS: BUN/Creatinine Ratio 10.1; Bilirubin, Total 0.6 mg/dL (0.2-1.0); Total Protein 8.6 g/dL (6.4-8.2)
[2020-06-17] MEDS ORDERED: ONDANSETRON HCL 4 MG/2 ML VIAL IV ONE (18:30)
[2020-06-17] MEDS ORDERED: MORPHINE SULFATE 4 MG/ML SYR/VIAL IV ONE (18:30)
[2020-06-17 21:36] VITALS: BP 129/74
== END 2020-06-17 22:07 | disposition left against medical advice (07) ==
LOC: ER 14:46
DX: R10.9 Unspecified abdominal pain (principal); I10 Essential (primary) hypertension; K21.9 Gastro-esophageal reflux disease without esophagitis; Z79.899 Other long term (current) drug therapy
CPT/HCPCS: 36415; 76801; 76817; 80053; 84702; 85025